=== PATIENT | female | born 1980 | race Caucasian/White ===

== ENCOUNTER → 2017-01-05 | Outpatient (CLI) | payer OTHER ==
[~2017-01-05] MED LIST: ASPI-496 PO; CYCL-259 PO; DICL100G25 TD; DIME240C PO; LACT1CAP40 PO; MIRT15TA PO; PREN1TAB84 PO
[2017-01-05 13:12] LABS: HEMATOCRIT 43.8 % (34.6-47.8); WHITE BLOOD COUNT 6.9 x10^3/uL (3.4-10)
== END | disposition home or self-care (01) ==
LOC: STAR 12:18
PROVIDERS: ATTEND Obstetrics & Gynecology Maternal & Fetal Medicine
DX: Z01.818 Encounter for other preprocedural examination (principal); N92.0 Excessive and frequent menstruation with regular cycle
CPT/HCPCS: 36415; 81003; 84703; 85025

== ENCOUNTER 2017-01-15 13:25 | Day surgery (SDC) | payer OTHER ==
[~2017-01-15] VITALS: Ht 167.6 cm; Wt 75.2 kg
[~2017-01-15 13:25] MED LIST changes: +ALBUTEROL SULFATE 2.5 MG/3 ML NPPB PRN; +BUPIVACAINE/PF 0.25% ONE; +DEXAMETHASONE 4 MG/ML, 1ML ONE; +EPHEDRINE 50 MG/ML, 1ML IVPush PRN; +FENTANYL PF 100 MCG/2ML IV PRN; +FENTANYL PF 100 MCG/2ML ONE; +GLYCOPYRROLATE 0.2MG/1ML, 5ML ONE; +HYDROcodone/APAP 7.5-325MG/15ML UDC PO PRN; +HYDROmorphone 1 MG/ML, 1ML IV PRN; +KETOROLAC 30 MG/1 ML IV PRN; +LABETALOL 5MG/ML, 20ML IV PRN; +LIDOCAINE-MPF 2% ,5ML ONE; +MEPERIDINE/PF 25MG/0.5ML IVPush PRN; +METOCLOPRAMIDE 5 MG/ML, 2ML IV PRN; +MIDAZOLAM 1 MG/ML, 2ML IV PRN; +MIDAZOLAM 1 MG/ML, 2ML ONE; +ONDANSETRON 2MG/ML, 2ML IVPush PRN; +ONDANSETRON 2MG/ML, 2ML ONE; +OXYcodone 5 MG/5 ML ORAL.SOL UDC PO PRN; +PROPOFOL 10 MG/ML, 20ML ONE; +ROCURONIUM 10 MG/ML ONE
[2017-01-15] MEDS ORDERED: LACTATED RINGERS 1,000 ML IV SCH (13:40)
[2017-01-15 13:42] VITALS: BP 112/74
[2017-01-15 13:50] LABS: HCG UR LOT HCG7030192
[2017-01-15 13:57] LABS: HCG UR OBC PASS
[2017-01-15] MEDS ORDERED: ROCURONIUM 10 MG/ML ONE (15:33)
[2017-01-15] MEDS ORDERED: KETOROLAC 30 MG/1 ML ONE (15:33)
[2017-01-15] MEDS ORDERED: HYDROcodone/APAP 7.5-325MG/15ML UDC ONE (16:50)
[2017-01-15] MEDS ORDERED: FENTANYL PF 100 MCG/2ML ONE (17:11)
== END 2017-01-15 18:22 | disposition home or self-care (01) ==
LOC: OR 13:25
PROVIDERS: ATTEND Obstetrics & Gynecology Maternal & Fetal Medicine
DX: N92.0 Excessive and frequent menstruation with regular cycle (principal); Z79.82 Long term (current) use of aspirin
CPT/HCPCS: 58563; 81025; J1100; J1885; J2250; J2405; J2704; J3010; J3490; J7120